=== PATIENT | male | born 1980 | race Caucasian/White ===

== ENCOUNTER 2017-09-30 09:49 | Emergency (ER) | payer OTHER ==
[2017-09-30 09:58] VITALS: PULSE 61; TEMP 97.4; BMI 29.7
[2017-09-30] MEDS ORDERED: SODIUM CHLORIDE 1,000 ML IV STA (10:29)
[2017-09-30] MEDS ORDERED: ONDANSETRON 4 MG/2 ML VIAL IVPUSH ONE (10:29)
[2017-09-30] MEDS ORDERED: PANTOPRAZOLE SODIUM 40 MG VIAL IVPUSH ONE (10:30)
[2017-09-30] MEDS ORDERED: PANTOPRAZOLE SODIUM 40 MG/100 ML BAG IVPB ONE (10:41)
[2017-09-30] MEDS ORDERED: ONDANSETRON 4 MG/2 ML VIAL ONE (10:42)
[2017-09-30 11:06] LABS: URINE APPEARANCE CLEAR; URINE BILIRUBIN NEGATIVE (<2.0 mg/dL); URINE BLOOD NEGATIVE (NEGATIVE); URINE COLOR LTYELLOW; URINE GLUCOSE (UA) NEGATIVE (NEGATIVE); URINE KETONE NEGATIVE (NEGATIVE); URINE LEUK ESTERASE NEGATIVE (NEGATIVE); URINE NITRITE NEGATIVE (NEGATIVE); URINE PROTEIN NEGATIVE (NEGATIVE); URINE UROBILINOGEN NEGATIVE mg/dL (0.2-1.0)
[2017-09-30 11:07] LABS: BASO % 0.5 % (0-2.0); HEMATOCRIT 47.2 % (35.4-49); HEMOGLOBIN 16.2 GM/dL (11.7-16.9); LYMPH % 26.9 % (8-40); MCHC 34.4 g/dl (32.0-35.9); MEAN CELL VOLUME 87.1 fl (80-96); MEAN PLT VOLUME 7.5 fl (7.5-11.1); MONO % 7.4 % (3.8-10.2); NEUT % 64.2 % (42.8-82.8); PLATELET COUNT 245 K/MM3 (134-434); RBC 5.42 M/mm3 (4.00-5.60); RDW 13.4 % (11.9-15.9)
[2017-09-30 11:21] LABS: INR 1.01 (0.82-1.09); PROTHROMBIN TIME (PATIENT) 11.4 SEC (9.98-11.88)
[2017-09-30 11:24] LABS: ACTIVATED PTT 34.8 SECONDS (26.9-34.4)
[2017-09-30 11:36] LABS: ALBUMIN 3.7 g/dl (3.4-5.0); ANION GAP 7 (8-16); BILIRUBIN,TOTAL 0.4 mg/dL (0.2-1.0); BLOOD UREA NITROGEN 11 mg/dL (7-18); CALCIUM 8.6 mg/dL (8.5-10.1); CHLORIDE 106 mmol/L (98-107); CO2 26 mmol/L (21-32); CREATININE 0.7 mg/dL (0.7-1.3); GLUCOSE,RANDOM 94 mg/dL (74-106); LIPASE 97 U/L (73-393); SGOT/AST 39 U/L (15-37); SGPT/ALT 102 U/L (12-78); SODIUM 139 mmol/L (136-145); TOT PROT 7.3 g/dl (6.4-8.2)
[2017-09-30 11:39] LABS: ALK PHOS 121 U/L (45-117)
--- NOTE | 2017-09-30 11:58 | PDOC ---
History of Present Illness - General History Source: Patient Exam Limitations: No Limitations - History of Present Illness Initial Comments: 09/30/17 12:00 The patient is a 37 year old male with no significant PMHx who presents to the emergency department with epigastric pain for the past 4 days. The patient states the epigastric pain is sharp and burning in sensation, 9/10 in severity, with radiation to the umbilicus and exacerbated with PO intake and walking. The patient states the epigastric pain worsened last night and did not improve overnight prompting him to come to the ER. The patient attempted to vomit last night to relieve the pain with minimal improvement. The patient states he had some chicken soup and tea this morning and has only been eating/drinking this since the onset of the epigastric pain. The patient denies fever/chills, diarrhea or dysuria.The patient denies similar symptoms in the past. The patient denies taking any pain meds. The patient denies having an endoscopy in the past. Last BM was this morning, and was noted to be normal. Allergies: NKA Past surgical history: None reported. Social history: No reported alcohol, drug, or cigarette use. <Gris Collins - Last Filed: 09/30/17 12:00> <Terra Kilpatrick - Last Filed: 09/30/17 17:50> - General Chief Complaint: Pain Stated Complaint: ABD PAIN Time Seen by Provider: 09/30/17 10:01 Past History <Gris Collins - Last Filed: 09/30/17 12:00> - Past Medical History COPD: No - Immunization History Immunization Up to Date: Yes - Suicide/Smoking/Psychosocial Hx Smoking History: Never smoked Have you smoked in the past 12 months: No Information on smoking cessation initiated: No Hx Alcohol Use: No Drug/Substance Use Hx: No Substance Use Type: None <Terra Kilpatrick - Last Filed: 09/30/17 17:50> - Past Medical History Allergies/Adverse Reactions: Allergies Allergy/AdvReac Type Severity Reaction Status Date / Time No Known Allergies Allergy Verified 09/30/17 09:58 Home Medications: Ambulatory Orders NK [No Known Home Medication] 09/30/17 Review of Systems - Review of Systems Able to Perform ROS?: Yes Comments:: 09/30/17 12:01 GENERAL/CONSTITUTIONAL: No fever or chills. No weakness. HEAD, EYES, EARS, NOSE AND THROAT: No change in vision. No ear pain or discharge. No sore throat. GASTROINTESTINAL: (+) Epigastric pain. No nausea, vomiting, diarrhea or constipation. GENITOURINARY: No dysuria, frequency, or change in urination. CARDIOVASCULAR: No chest pain or shortness of breath. RESPIRATORY: No cough, wheezing, or hemoptysis. MUSCULOSKELETAL: No joint or muscle swelling or pain. No neck or back pain. SKIN: No rash NEUROLOGIC: No headache, vertigo, loss of consciousness, or change in strength/ sensation. ENDOCRINE: No increased thirst. No abnormal weight change. HEMATOLOGIC/LYMPHATIC: No anemia, easy bleeding, or history of blood clots. ALLERGIC/IMMUNOLOGIC: No hives or skin allergy. <Gris Collins - Last Filed: 09/30/17 12:00> *Physical Exam - Vital Signs Last Vital Signs Temp Pulse Resp BP Pulse Ox 97.4 F L 61 19 150/81 97 09/30/17 09:56 09/30/17 09:56 09/30/17 09:56 09/30/17 09:56 09/30/17 09:56 - Physical Exam Comments: 09/30/17 12:01 GENERAL: Awake, alert, and fully oriented, in no acute distress HEAD: No signs of trauma EYES: PERRLA, EOMI, sclera anicteric, conjunctiva clear ENT: Auricles normal inspection, hearing grossly normal, nares patent, oropharynx clear without exudates. Moist mucosa NECK: Normal ROM, supple, no lymphadenopathy, JVD, or masses LUNGS: Breath sounds equal, clear to auscultation bilaterally. No wheezes, and no crackles HEART: Regular rate and rhythm, normal S1 and S2, no murmurs, rubs or gallops ABDOMEN: (+) Epigastric and RUQ tenderness. Soft, normoactive bowel sounds.Negative McBurney's point. No guarding, no rebound. No masses EXTREMITIES: Normal range of motion, no edema. No clubbing or cyanosis. No cords, erythema, or tenderness BACK: No midline spinal tenderness in cervical/thoracic/lumbar region NEUROLOGICAL: Normal speech, cranial nerves intact, negative pronator drift, 5/ 5 strength in all 4 extremities, normal sensation to light touch in all 4 extremities, normal cerebellar exam, normal gait, normal reflexes and tone SKIN: Warm, Dry, normal turgor, no rashes or lesions noted. <Cassy Collinssy - Last Filed: 09/30/17 12:00> - Vital Signs Last Vital Signs Temp Pulse Resp BP Pulse Ox 97.4 F L 61 19 150/81 97 09/30/17 09:56 09/30/17 09:56 09/30/17 09:56 09/30/17 09:56 09/30/17 09:56 <CeciliaChung marinellimarcus - Last Filed: 09/30/17 17:50> ED Treatment Course - LABORATORY CBC & Chemistry Diagram: 09/30/17 10:30 09/30/17 10:30 - ADDITIONAL ORDERS Additional order review: Laboratory Results 09/30/17 09/30/17 09/30/17 10:30 10:30 10:30 PT with INR 11.40 INR 1.01 PTT (Actin FS) 34.8 H Sodium 139 Potassium 4.0 Chloride 106 Carbon Dioxide 26 Anion Gap 7 L BUN 11 Creatinine 0.7 Creat Clearance w eGFR > 60 Random Glucose 94 Calcium 8.6 Magnesium 2.0 Total Bilirubin 0.4 AST 39 H ALT 102 H Alkaline Phosphatase 121 H Troponin I < 0.02 Total Protein 7.3 Albumin 3.7 Lipase 97 Urine Color Ltyellow Urine Appearance Clear Urine pH 6.0 Ur Specific [place] 1.017 Urine Protein Negative Urine Glucose (UA) Negative Urine Ketones Negative Urine Blood Negative Urine Nitrite Negative Urine Bilirubin Negative Urine Urobilinogen Negative Ur Leukocyte Esterase Negative 09/30/17 10:30 RBC 5.42 MCV 87.1 MCHC 34.4 RDW 13.4 MPV 7.5 Neutrophils % 64.2 Lymphocytes % 26.9 Monocytes % 7.4 Eosinophils % 1.0 Basophils % 0.5 - Medications Given in the ED: ED Medications Discontinued Medications Generic Name Dose Route Start Last Admin Trade Name Freq PRN Reason Stop Dose Admin Sodium Chloride 1,000 mls @ 1,000 mls/hr 09/30/17 10:29 09/30/17 10:50 Normal Saline - IV 09/30/17 11:28 1,000 mls/hr ASDIR STA Administration Ondansetron HCl 4 mg 09/30/17 10:29 09/30/17 10:50 Zofran Injection IVPUSH 09/30/17 10:30 4 mg ONCE ONE Administration Pantoprazole Sodium 40 mg 09/30/17 10:30 09/30/17 10:50 Protonix Iv IVPUSH 09/30/17 10:31 40 mg ONCE ONE Administration <Gris Collins - Last Filed: 09/30/17 12:00> - LABORATORY CBC & Chemistry Diagram: 09/30/17 10:30 09/30/17 10:30 - ADDITIONAL ORDERS Additional order review: Laboratory Results 09/30/17 09/30/17 10:30 10:30 PT with INR 11.40 INR 1.01 PTT (Actin FS) 34.8 H Urine Color Ltyellow Urine Appearance Clear Urine pH 6.0 Ur Specific [place] 1.017 Urine Protein Negative Urine Glucose (UA) Negative Urine Ketones Negative Urine Blood Negative Urine Nitrite Negative Urine Bilirubin Negative Urine Urobilinogen Negative Ur Leukocyte Esterase Negative 09/30/17 10:30 RBC 5.42 MCV 87.1 MCHC 34.4 RDW 13.4 MPV 7.5 Neutrophils % 64.2 Lymphocytes % 26.9 Monocytes % 7.4 Eosinophils % 1.0 Basophils % 0.5 - RADIOLOGY Radiology Studies Ordered: Category Date Time Status CHEST PA & LAT [RAD] Stat Radiology 09/30/17 10:27 Ordered ABDOMEN US -LIMITED [US] Stat Ultrasound 09/30/17 10:27 Ordered - Medications Given in the ED: ED Medications Discontinued Medications Generic Name Dose Route Start Last Admin Trade Name Freq PRN Reason Stop Dose Admin Sodium Chloride 1,000 mls @ 1,000 mls/hr 09/30/17 10:29 09/30/17 10:50 Normal Saline - IV 09/30/17 11:28 1,000 mls/hr ASDIR STA Administration Ondansetron HCl 4 mg 09/30/17 10:29 09/30/17 10:50 Zofran Injection IVPUSH 09/30/17 10:30 4 mg ONCE ONE Administration Pantoprazole Sodium 40 mg 09/30/17 10:30 09/30/17 10:50 Protonix Iv IVPUSH 09/30/17 10:31 40 mg ONCE ONE Administration <NassefYomna - Last Filed: 09/30/17 17:50> Medical Decision Making - Medical Decision Making 09/30/17 12:09 37-year-old male with no significant past medical history and no alcohol or NSAID use presents the emergency department with epigastric pain. Vitals initially with hypertension to the 150s systolic, however on repeat blood pressure is 128/88. On exam, patient has epigastric and right upper quadrant tenderness to palpation. Differential includes but is not limited to pancreatitis versus cholecystitis versus gastritis versus gastroesophageal reflux. Plan: -labs -US -UA -sx control -dispo 09/30/17 17:41 Labs with mild AST/ALT, alk phos elevation. US with GB polyp but no evidence of acute cholecystitis. On rpt exam, minimal epigastric ttp. Pt tolerating PO, feels better, requests DC home. Recommended that pt f/u with PMD (will refer) and surgery. Return precautions given. Pt expresses understanding. I discussed the physical exam findings, ancillary test results and final diagnoses with the patient. I answered all of the patient's questions. The patient was satisfied with the care received and felt comfortable with the discharge plan and treatment plan. The patient will call their primary care physician within 24 hours to arrange follow-up and will return to the Emergency Department with any new, persistent or worsening symptoms. <Terra Kilpatrick - Last Filed: 09/30/17 17:50> *DC/Admit/Observation/Transfer - Attestations Scribe Attestion: 09/30/17 12:02 Documentation prepared by Gris Collins, acting as medical oncology physician for Terra Kilpatrick MD. <Gris Collins - Last Filed: 09/30/17 12:00> - Discharge Dispostion Admit: No - Attestations Physician Attestion: 09/30/17 17:50 I, Dr. Terra Kilpatrick MD, attest that this document has been prepared under my direction and personally reviewed by me in its entirety. I further attest, that it accurately reflects all work, treatment, procedures and medical decision -making performed by me. <Terra Kilpatrick - Last Filed: 09/30/17 17:50> Diagnosis at time of Disposition: Abdominal pain - Discharge Dispostion Disposition: HOME Condition at time of disposition: Stable - Referrals Referrals: [facility] [place] [facility] [place] [facility] [Provider Group] - Patient Instructions Printed Discharge Instructions: DI for Abdominal Pain-Adult Additional Instructions: As discussed, call the internal medicine office for a follow up appointment within 1 week. Your liver function tests were abnormal, make sure when you follow up that they are repeated. Also, call the surgery doctor's office (Dr. Amarjit Elkins) for follow up within 1 week due to the gallbladder polyp that we discussed. Return to the emergency department if you have any, new, worsening, or concerning symptoms. Print Language: FRENCH
[2017-09-30] MEDS ORDERED: FAMOTIDINE 20 MG/50 ML IVPB 20 MG/50 ML MG IVPB ONE (12:00)
--- NOTE | 2017-09-30 14:50 | EKG ---
Test Reason : Blood Pressure : / mmHG Vent. Rate : 060 BPM Atrial Rate : 060 BPM P-R Int : 144 ms QRS Dur : 098 ms QT Int : 414 ms P-R-T Axes : 016 007 027 degrees QTc Int : 414 ms NORMAL SINUS RHYTHM NORMAL ECG NO PREVIOUS ECGS AVAILABLE Confirmed by JALEN FLORES MD ([id number]) on 09/30/2017 2:49:51 PM Referred By: Confirmed By:JALEN FLORES MD
[2017-09-30 18:06] VITALS: BP 136/83
== END 2017-09-30 18:06 | disposition home or self-care (01) ==
LOC: JER 09:49
PROC: 3E033GC Introduction of Other Therapeutic Substance into Peripheral Vein, Percutaneous Approach (ICD-10-PCS; principal; 2017-09-30)
PROC: 3E033GC Introduction of Other Therapeutic Substance into Peripheral Vein, Percutaneous Approach (ICD-10-PCS; 2017-09-30)
DX: R10.13 Epigastric pain (principal)
CPT/HCPCS: 36415; 71046-TC-FY; 76705-TC; 80053; 81003; 83690; 83735; 84484; 85025; 85610; 85730; 87086; 93005; 93010; 99283-25; J7030